=== PATIENT | female | born 1955 | race Caucasian/White ===

== ENCOUNTER 2019-10-13 13:23 | Inpatient (IN) | payer MEDICARE, MEDICAID ==
[~2019-10-13] VITALS: Ht 160 cm; Wt 77.6 kg
[2019-10-13] MEDS ORDERED: SODIUM CHLORIDE 0.9% 500 ML IV ONE (13:41)
[2019-10-13] MEDS ORDERED: LABETALOL 5MG/ML SYR 20 MG/4 ML SYRINGE IV ONE (14:15)
[2019-10-13 14:26] LABS: BASOPHILS % 0.2 % (0.0-2.0); HEMATOCRIT. 44.9 % (36.0-48.0); HEMOGLOBIN. 14.5 g/dL (12.0-16.0); LYMPHOCYTES % 7.5 % (20.0-50.0); MEAN CORPUSCULAR HEMOGLOBIN 26.3 pg (28.0-32.0); MEAN CORPUSCULAR VOLUME 81.6 fL (81.0-99.0); MEAN PLATELET VOLUME 8.9 fl (7.4-10.4); MONOCYTES % 3.6 % (2.0-8.0); NEUTROPHILS % 88.7 % (40.0-76.0); PLATELET 313 x1000/uL (130-400); RED CELL DISTRIBUTION WIDTH 15.1 % (11.6-14.6)
[2019-10-13 14:33] LABS: BG BASE EXCESS -1.5 mmol/L (-2.0-2.0); BG CARBOXYHEMOGLOBIN 0.2 % (0.5-1.5); BG DEOXYHEMOGLOBIN 0.8 % (0.0-5.0); BG FRACTION INSPIRED OXYGEN 99.8; BG HCO3 ACT 23.5 mmol/L (22.0-26.0); BG METHEMOGLOBIN 0.3 % (0.0-1.5); BG OXYGEN SATURATION 99.2 % (92.0-98.5); BG OXYHEMOGLOBIN 98.7 % (94.0-97.0); BG PH 7.377 (7.350-7.450); BG PO2 239.5 mmHg (75.0-100.0); BG SAMPLE SITE LEFT RADIAL; BG TOTAL HEMOGLOBIN 14.7 g/dL (12.0-18.0); BG VENT MODE MASK - NRB
[2019-10-13 14:34] LABS: CHLORIDE 101 mEq/L (98-107)
[2019-10-13 14:41] LABS: ETHANOL BLOOD < 10 mg/dL
[2019-10-13 14:42] LABS: C REACTIVE PROTEIN QUANT 6.5 mg/L (0.0-3.0)
[2019-10-13 14:45] LABS: CREATINE KINASE 80 IU/L (26-192)
[2019-10-13] MEDS ORDERED: INSULIN REGULAR (HUMULIN R) 300UNITS/3ML IV ONE (15:00)
[2019-10-13] MEDS: LORAZEPAM 2MG/ML CPJ IV ONE ×2 (15:29→15:40)
[2019-10-13 16:17] LABS: CLARITY URINE CLEAR (CLEAR); COLOR URINE YELLOW (YELLOW); KETONES URINE 2+ (NEGATIVE); LEUKOCYTE ESTERASE URINE NEGATIVE (NEGATIVE); NITRITE URINE NEGATIVE (NEGATIVE); OCCULT BLOOD URINE TRACE (NEGATIVE); PROTEIN URINE 3+ (NEGATIVE); SPECIFIC GRAVITY URINE 1.022 (1.005-1.030)
[2019-10-13 16:34] LABS: D-DIMER 0.24 mg/L FEU (<0.50); PROTHROMBIN TIME 10.8 sec (9.6-11.0)
[2019-10-13 16:40] LABS: *AMPHETAMINES SCREEN URINE NEGATIVE (NEGATIVE); *BARBITURATES SCREEN URINE NEGATIVE (NEGATIVE); *BENZODIAZEPINES SCREEN URINE NEGATIVE (NEGATIVE); *COCAINE SCREEN URINE NEGATIVE (NEGATIVE); METHADONE URINE SCREEN NEGATIVE (NEGATIVE); OPIATES URINE SCREEN NEGATIVE (NEGATIVE)
[2019-10-13 16:41] LABS: CANNABINOID URINE SCREEN NEGATIVE (NEGATIVE); PHENCYCLIDINE URINE SCREEN NEGATIVE (NEGATIVE)
[2019-10-13] MEDS ORDERED: DEXTROSE 50% WATER 50ML SYRINGE IV PRN (19:30)
[2019-10-13] MEDS ORDERED: ACETAMINOPHEN 325MG TABLET PO PRN (19:30)
[2019-10-13] MEDS: BLOOD SUGAR DIAGNOSTIC STRIP TEST SCH (20:57)
[2019-10-13] MEDS ORDERED: INSULIN LISPRO 100 UNITS/ML SUBCUT SCH (21:00)
[2019-10-13] MEDS ORDERED: AMLODIPINE 5MG TABLET PO SCH (21:00)
[2019-10-13] MEDS ORDERED: CEFTRIAXONE 1 G PREMIX 50 ML IV NR (22:00)
[2019-10-13] MEDS ORDERED: INSULIN GLARGINE UD 100 UNITS/ML SYR SUBCUT SCH (22:00)
[2019-10-14 05:10] LABS: BASOPHILS % 0.4 % (0.0-2.0); EOSINOPHILS % 0.9 % (0.0-5.0); HEMATOCRIT. 40.8 % (36.0-48.0); HEMOGLOBIN. 13.1 g/dL (12.0-16.0); LYMPHOCYTES % 23.8 % (20.0-50.0); MEAN CORPUSCULAR HEMOGLOBIN 26.2 pg (28.0-32.0); MEAN CORPUSCULAR VOLUME 81.4 fL (81.0-99.0); MEAN PLATELET VOLUME 8.4 fl (7.4-10.4); MONOCYTES % 7.8 % (2.0-8.0); NEUTROPHILS % 67.1 % (40.0-76.0); PLATELET 296 x1000/uL (130-400); RED BLOOD CELL COUNT 5.01 mill/uL (4.2-5.4); RED CELL DISTRIBUTION WIDTH 15.3 % (11.6-14.6)
[2019-10-14] MEDS ORDERED: AZITHROMYCIN 500 MG TABLET PO SCH (09:00)
[2019-10-14 09:45] VITALS: BP 192/95
[2019-10-14] MEDS ORDERED: CLONIDINE 0.1MG TABLET PO PRN (10:45)
[2019-10-14] MEDS ORDERED: ACETAMINOPHEN 325MG TABLET PO PRN (11:45)
[2019-10-14] MEDS ORDERED: DEXTROSE 50% WATER 50ML SYRINGE IV PRN (11:45)
[2019-10-14] MEDS: LORAZEPAM 2MG/ML CPJ IV PRN (12:39)
[2019-10-14] MEDS: BLOOD SUGAR DIAGNOSTIC STRIP TEST SCH ×4 (12:40→21:00)
[2019-10-14] MEDS: AZITHROMYCIN 500 MG TABLET PO SCH (13:22)
[2019-10-14] MEDS: RISPERIDONE 0.5MG TABLET PO SCH (13:23)
[2019-10-14] MEDS: AMLODIPINE 5MG TABLET PO SCH ×2 (13:23→21:18)
[2019-10-14] MEDS: INSULIN LISPRO 100 UNITS/ML SUBCUT SCH ×3 (13:24→22:20)
[2019-10-14] MEDS: ENOXAPARIN 40MG/0.4ML SYR SUBCUT SCH (13:24)
[2019-10-14] MEDS ORDERED: RISP2 PO (14:20)
[2019-10-14] MEDS ORDERED: RISP4TAB16 MT (14:27)
[2019-10-14] MEDS ORDERED: CALC-586 PO (14:27)
[2019-10-14] MEDS ORDERED: AMA2 PO (14:27)
[2019-10-14] MEDS ORDERED: DOCU-138 PO (14:27)
[2019-10-14] MEDS ORDERED: AMLO10TA4 MT (14:27)
[2019-10-14] MEDS ORDERED: LEVO50TA MT (14:27)
[2019-10-14] MEDS ORDERED: OMEG-118 MT (14:27)
[2019-10-14] MEDS ORDERED: METF-416 MT (14:27)
[2019-10-14 18:02] VITALS: BP 115/55
[2019-10-14 20:00] VITALS: BP 133/75
[2019-10-14] MEDS ORDERED: CEFTRIAXONE 1 G PREMIX 50 ML IV SCH ×3 (21:00)
[2019-10-14] MEDS ORDERED: INSULIN GLARGINE UD 100 UNITS/ML SYR SUBCUT SCH (22:00)
[2019-10-15] VITALS: BP 148/64
[2019-10-15 04:00] VITALS: BP 140/60
[2019-10-15] MEDS: BLOOD SUGAR DIAGNOSTIC STRIP TEST SCH ×4 (06:52→21:00)
[2019-10-15 08:00] VITALS: BP 145/65
[2019-10-15] MEDS: INSULIN LISPRO 100 UNITS/ML SUBCUT SCH ×6 (08:04→23:57)
[2019-10-15] MEDS: ENOXAPARIN 40MG/0.4ML SYR SUBCUT SCH (09:14)
[2019-10-15] MEDS: RISPERIDONE 0.5MG TABLET PO SCH (09:15)
[2019-10-15] MEDS: AZITHROMYCIN 500 MG TABLET PO SCH (09:15)
[2019-10-15] MEDS: AMLODIPINE 5MG TABLET PO SCH ×2 (09:15→22:51)
[2019-10-15] MEDS: INSULIN GLARGINE UD 100 UNITS/ML SYR SUBCUT SCH ×2 (10:51→23:56)
[2019-10-15 12:00] VITALS: BP 142/63
[2019-10-15 16:00] VITALS: BP 146/65
[2019-10-15 20:00] VITALS: BP 150/64
[2019-10-15] MEDS: CEFTRIAXONE 1,000 MG in DEXTROSE 5% WATER 50 ML IV SCH (22:51)
[2019-10-16] VITALS: BP 138/60
[2019-10-16] MEDS: INSULIN LISPRO 100 UNITS/ML SUBCUT SCH ×6 (07:38→22:28)
[2019-10-16] MEDS: BLOOD SUGAR DIAGNOSTIC STRIP TEST SCH ×3 (07:40→21:00)
[2019-10-16 08:00] VITALS: BP 211/90
[2019-10-16] MEDS: LORAZEPAM 2MG/ML CPJ IV PRN ×2 (08:13→16:24)
[2019-10-16] MEDS: AZITHROMYCIN 500 MG TABLET PO SCH ×3 (08:14→11:20)
[2019-10-16] MEDS: AMLODIPINE 5MG TABLET PO SCH ×3 (08:14→11:19)
[2019-10-16] MEDS: RISPERIDONE 1MG TABLET PO SCH ×3 (08:14→11:19)
[2019-10-16] MEDS: ENOXAPARIN 40MG/0.4ML SYR SUBCUT SCH (08:17)
[2019-10-16] MEDS: INSULIN GLARGINE UD 100 UNITS/ML SYR SUBCUT SCH ×2 (11:21→22:28)
[2019-10-16 12:00] VITALS: BP 142/72
[2019-10-16 14:31] LABS: COVID-19 PCR RNA NOT DETECTED
[2019-10-16 14:32] LABS: COVID-19 PCR RNA NOT DETECTED
[2019-10-16] MEDS ORDERED: IPRATROPIUM/ALBUTEROL 0.5-3(2.5)MG/3ML NEB HHN PRN (15:30)
[2019-10-16] MEDS: GLIMEPIRIDE 2MG TABLET PO SCH (18:20)
[2019-10-16] MEDS: CALCIUM CARBONATE 500MG TABLET CHEW PO SCH (18:21)
[2019-10-16] MEDS: METFORMIN HCL 500MG TABLET PO SCH (18:21)
[2019-10-16 20:00] VITALS: BP 142/77
[2019-10-16] MEDS: CEFTRIAXONE 1,000 MG in DEXTROSE 5% WATER 50 ML IV SCH (21:00)
[2019-10-16] MEDS: IPRATROPIUM/ALBUTEROL 0.5-3(2.5)MG/3ML NEB HHN SCH (21:38)
[2019-10-17] VITALS: BP 129/58
[2019-10-17] MEDS: IPRATROPIUM/ALBUTEROL 0.5-3(2.5)MG/3ML NEB HHN SCH ×2 (02:26→08:00)
[2019-10-17 04:00] VITALS: BP 148/68
[2019-10-17] MEDS: INSULIN LISPRO 100 UNITS/ML SUBCUT SCH ×2 (05:17→07:50)
[2019-10-17] MEDS: BLOOD SUGAR DIAGNOSTIC STRIP TEST SCH (05:18)
[2019-10-17] MEDS: METFORMIN HCL 500MG TABLET PO SCH (07:50)
[2019-10-17 08:00] VITALS: BP 151/76
[2019-10-17] MEDS ORDERED: DOCUSATE SODIUM 100MG CAPSULE PO SCH (09:00)
[2019-10-17] MEDS ORDERED: FISH OIL/OMEGA-3 FATTY ACIDS 1000MG CAPSULE PO SCH (09:00)
[2019-10-17] MEDS ORDERED: LEVOTHYROXINE SODIUM 50MCG TABLET PO SCH (09:00)
[2019-10-17] MEDS: GLIMEPIRIDE 2MG TABLET PO SCH (09:44)
[2019-10-17] MEDS: CALCIUM CARBONATE 500MG TABLET CHEW PO SCH (09:44)
[2019-10-17] MEDS: AMLODIPINE 5MG TABLET PO SCH (09:45)
[2019-10-17] MEDS: ENOXAPARIN 40MG/0.4ML SYR SUBCUT SCH (09:46)
[2019-10-17 10:27] VITALS: BP 151/76
[2019-10-17] MEDS: INSULIN GLARGINE UD 100 UNITS/ML SYR SUBCUT SCH (11:36)
[2019-10-17] MEDS: LORAZEPAM 2MG/ML CPJ IV PRN (11:51)
== END 2019-10-17 13:55 | DRG 871 ==
LOC: ER 14:02 → 7WST 14:25 → EDBEDREQSVC 14:38 → EDBEDREQ 14:38 → EDBEDREQTM 14:38 → ENRESERV 10-14 08:10 → ER 10-14 09:30 → 5WST 10-16 16:45 → 6WST 10-16 18:11
PROVIDERS: ADMIT Internal Medicine; ATTEND Internal Medicine
DX: A41.9 Sepsis, unspecified organism (principal); J96.01 Acute respiratory failure with hypoxia; J18.9 Pneumonia, unspecified organism; G93.40 Encephalopathy, unspecified; E87.1 Hypo-osmolality and hyponatremia; E87.5 Hyperkalemia; F20.9 Schizophrenia, unspecified; E03.9 Hypothyroidism, unspecified; E11.22 Type 2 diabetes mellitus with diabetic chronic kidney disease; E78.00 Pure hypercholesterolemia, unspecified; E78.5 Hyperlipidemia, unspecified; I13.10 Hypertensive heart and chronic kidney disease without heart failure, with stage 1 through stage 4 chronic kidney disease, or unspecified chronic kidney disease; K21.9 Gastro-esophageal reflux disease without esophagitis; N18.9 Chronic kidney disease, unspecified; Z20.828 Contact with and (suspected) exposure to other viral communicable diseases; E11.65 Type 2 diabetes mellitus with hyperglycemia; F99 Mental disorder, not otherwise specified; Z79.899 Other long term (current) drug therapy; J44.9 Chronic obstructive pulmonary disease, unspecified; J06.9 Acute upper respiratory infection, unspecified
CPT/HCPCS: 36415; 36600; 71045; 80048; 80053; 80305; 80320; 81003; 82010; 82375; 82550; 82728; 82805; 82962; 83036; 83605; 83615; 83880; 84132; 84145; 84484; 85025; 85379; 85384; 86140; 87804; 93005; 99291; J0696; J1650; J1815; J2060; J7040; J7060; G0480